=== PATIENT | female | born 1955 | race Caucasian/White ===

== ENCOUNTER 2017-10-21 13:07 | Outpatient (CLI) | payer OTHER | END 2017-10-21 13:08 | disposition home or self-care (01) | LOC: LABBT 13:07 | PROVIDERS: ATTEND Internal Medicine Cardiovascular Disease | DX: Z01.818 Encounter for other preprocedural examination (principal); I47.1 Supraventricular tachycardia ==

== ENCOUNTER 2017-10-23 10:33 | Outpatient (CLI) | payer OTHER ==
[2017-10-23 11:31] LABS: Hemoglobin 13.9 g/dL (12.0-16.0); Mean Corpuscular HGB CONC 34.5 g/dL (32.0-36.0); Mean Corpuscular Hemoglobin 30.9 pg (27.0-31.0); Mean Corpuscular Volume 89.7 fL (78.0-98.0); Mean Platelet Volume 9.5 fL (7.4-10.4); Platelet Count 194 thou/uL (130-400); RBC Distribution Width 12.1 % (11.5-14.5); Red Blood Cell (RBC) Count 4.48 mill/uL (4.20-5.40); White Blood Cell (WBC) Count 5.1 thou/uL (4.8-10.8)
[2017-10-23 11:32] LABS: INR-International Normal Ratio 0.8; PTT 26.9 SEC (22.9-36.1); Prothrombin Time 11.5 SEC (12.0-14.7)
[2017-10-23 11:52] LABS: Anion Gap 12 mmol/L (10-20); BUN (Urea Nitrogen) 9 mg/dL (9.8-20.1); Calc. Creatinine Clearance 0 mL/min (70-130); Calcium 9.2 mg/dL (7.8-10.44); Carbon Dioxide 21 mmol/L (22-29); Chloride 102 mmol/L (98-107); Estimated GFR-MDRD 90; Glucose 96 mg/dL (70-105); Potassium 4.1 mmol/L (3.5-5.1); Sodium 131 mmol/L (136-145)
== END 2017-10-23 10:34 | disposition home or self-care (01) ==
LOC: LABBT 10:33
PROVIDERS: ATTEND Internal Medicine Cardiovascular Disease
DX: Z01.818 Encounter for other preprocedural examination (principal); Z51.81 Encounter for therapeutic drug level monitoring; I47.1 Supraventricular tachycardia; Z79.01 Long term (current) use of anticoagulants
CPT/HCPCS: 80048; 85027; 85610; 85730

== ENCOUNTER → 2017-10-27 | Day surgery (SDC) | payer OTHER ==
[2017-10-21 13:58] VITALS: BMI 37.3
[~2017-10-27] MED LIST: Fentanyl 100 MCG/2 ML VIAL ONE; Heparin 10,000 UNITS/1 ML VIAL ONE; Isoproterenol 0.2 MG/1 ML AMP ONE; Lidocaine 1% (PF) 30 ML VIAL ONE; Lidocaine 1% PF 5 ML VIAL ONE; Midazolam HCl 2 mg/2 ml Vial ONE; PROPOFOL 20 ML ONE; PROPOFOL 200 MG/20 ML VIAL ONE; Propofol 1,000 MG/100 ML VIAL IV ONE; Propofol 500 MG/50 ML VIAL ONE
--- NOTE | 2017-10-28 09:01 | OP ---
DATE OF SERVICE: 10/27/2017 ELECTROPHYSIOLOGY STUDY and RADIOFREQUENCY ABLATION REPORT REFERRING PHYSICIAN: Laura Castano M.D. REASON FOR PROCEDURE: Mrs. King is a 62-year-old woman with history of [place] terminable supraventricular tachyarrhythmias. She is here for EP study and radiofrequency ablation. PROCEDURE IN DETAIL: The patient received deep sedation by Anesthesia specialist. After adequate sedation achieved, the left and right femoral venous area was prepped and anesthetized using subcutaneous lidocaine. Under ultrasound guidance, the left femoral veins were cannulated x2 with a 6 and 8 Polish short sheaths and on the right, there was an 8 Polish short sheaths were introduced. Through these on the left side, an octapolar catheter was advanced to the right ventricle, His bundle and right atrial area and a decapolar catheter via the 8 Polish sheaths to the CS area was advanced. Mapping, pacing and recording was performed in each location with the following findings baseline cycle length milliseconds with sinus rhythm, OK 164, QRS 64, QT 337. The AV Wenckebach cycle length was 290 milliseconds, retrograde Wenckebach cycle length was 270 milliseconds, AV node ERP 600/240 milliseconds. There, a dual AV huyen physiology was present. An echo beats were seen with atrial my testing. VA conduction was concentric, no evidence of accessory pathway was demonstrated with parahisian pacing. The HV was measured to be 45 milliseconds. No change of infra-his conduction with ablation was seen. Following that, on isuprel we were able to induce the ablation was performed using a single 90-second burn at 30 wells with a junctional response was seen throughout. Following that isuprel was administered and with burst atrial pacing, we were able to induce a 2:1 and 1:1 atrial arrhythmias. They weree too short to perform and did not sustain too short in duration to perform extensive maneuvers, but the initiation seems to have been consistent with atrial flutter initially with cycle length of about 210 to 230 milliseconds. The activation sequence was typical in the CS leads for right atrial flutter. Following that, also a 1:1 tachycardia were also seen. Some of them do also are more consistent with AVNRT due to the longer AH at the last pacing spike. At this point, a decision was made to perform a slow pathway modification as well as cavotricuspid isthmus ablation both. With the help of a [employer] ST catheter radiofrequency ablation was performed at a slow pathway at 30 wells. A total of one 90-second joiner were delivered with changing the Wenckebach cycle length to 310 milliseconds. Following that with 500 milliseconds pacing at the CS 910 pole, cavotricuspid isthmus ablation was performed at 40 wells, prolongation of the trans-isthmus time was achieved to 120 milliseconds with longest 120-130 milliseconds. The longest trans-isthmus time demonstrated adjacent to the ablation line suggestive of a unilateral conduction block. Following that, Isuprel reinduction of the AVRT was documented and repeat of slow pathway ablation was performed increasing the AV Wenckebach cycle to 320 milliseconds. The CTI line remained blocked on Isuprel. No reinducibility of the tachyarrhythmias were seen. CONCLUSION: 1. 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 2. Successful ablation of slow pathway eliminating inducibility of AVNRT. 3. Cavotricuspid isthmus ablation performed eliminating inducibility of atrial flutter. 4. Normal AV huyen and His-Purkinje function before and after the ablation. 4. No evidence of accessory pathway. 5. No change in cardiac silhouette and post-ablation and the patient remained stable throughout the procedure. PLAN: Wean off AV huyen blocking agents and routine outpatient followup. MTDD
== END ==
LOC: CCL 07:02
PROVIDERS: ATTEND Internal Medicine Cardiovascular Disease
PROC: 4A023FZ Measurement of Cardiac Rhythm, Percutaneous Approach (ICD-10-PCS; principal; 2017-10-27)
PROC: 02583ZZ Destruction of Conduction Mechanism, Percutaneous Approach (ICD-10-PCS; principal; 2017-10-27)
DX: I47.1 Supraventricular tachycardia (principal); I10 Essential (primary) hypertension; Z79.899 Other long term (current) drug therapy; Z88.2 Allergy status to sulfonamides
CPT/HCPCS: 76942; 93613; 93621; 93623; 93653; 93655; C1730; C1769; J1644; J2001; J2250; J2704; J3010

== ENCOUNTER 2018-04-09 13:00 | Inpatient (IN) | payer OTHER ==
[2018-04-17 13:29] VITALS: BMI 36.1
[2018-04-20] MEDS ORDERED: Tranexamic Acid 1,000 MG/10 ML VIAL ONE ×2 (10:42→15:54)
[2018-04-20] MEDS ORDERED: Sodium Chloride 0.9% 100 ML ONE (10:42)
[2018-04-20] MEDS ORDERED: CEFAZOLIN 2 GM/50 ML BAG ONE (10:42)
[2018-04-20] MEDS ORDERED: Midazolam HCl 2 mg/2 ml Vial ONE (11:05)
[2018-04-20] MEDS ORDERED: Fentanyl 100 MCG/2 ML VIAL ONE ×5 (11:05→16:35)
[2018-04-20] MEDS ORDERED: Ropivacaine HCl/PF 250 ML in Premix Bag 1 BAG NERVE BLCK SCH (11:28)
[2018-04-20] MEDS ORDERED: HYDROcodone/Acetaminophen 10/325 mg Tablet PO PRN ×3 (11:28→13:28)
[2018-04-20] MEDS ORDERED: Ondansetron PF 4 MG/2 ML Vial IVP PRN ×2 (11:28→13:28)
[2018-04-20] MEDS ORDERED: traMADol HCl 50 MG TAB PO PRN ×2 (11:28)
[2018-04-20] MEDS ORDERED: Promethazine HCl 25 MG/ML VIAL IM PRN ×3 (11:28→14:46)
[2018-04-20] MEDS ORDERED: Zolpidem Tartrate 5 MG TAB PO PRN ×2 (11:28→13:28)
[2018-04-20] MEDS ORDERED: Fentanyl 100 MCG/2 ML VIAL IV PRN (11:29)
[2018-04-20] MEDS ORDERED: Scopolamine 1.5 mg/72 hour Patch ONE (11:59)
[2018-04-20] MEDS ORDERED: Bupivacaine/Epinephrine 0.25% 30 ML VIAL ONE ×2 (13:09→14:07)
[2018-04-20] MEDS ORDERED: Neomycin-Polymyxin 1 ML AMP ONE (13:10)
[2018-04-20] MEDS ORDERED: diphenhydrAMINE 25 MG CAP PO PRN (13:28)
[2018-04-20] MEDS ORDERED: Acetaminophen 325 MG TAB PO PRN (13:28)
[2018-04-20] MEDS ORDERED: Morphine 4 MG/ML VIAL SLOW IVP PRN (13:28)
[2018-04-20] MEDS ORDERED: CEFAZOLIN/Water 2 GM/20 ML SYRINGE SLOW IVP SCH (13:30)
[2018-04-20] MEDS ORDERED: Tranexamic Acid 1,000 MG in Sodium Chloride 0.9% 100 ML IVPB SCH (13:45)
[2018-04-20] MEDS ORDERED: Ketorolac Tromethamine 30 MG/ML VIAL IVP SCH (14:00)
[2018-04-20] MEDS ORDERED: Promethazine HCl 25 MG/ML VIAL SLOW IVP PRN (14:46)
[2018-04-20] MEDS ORDERED: Ondansetron HCl/PF 4 MG/2 ML Vial IVP PRN (14:46)
[2018-04-20] MEDS ORDERED: HYDROmorphone 2 MG/ML VIAL SLOW IVP PRN (14:46)
[2018-04-20] MEDS ORDERED: Promethazine HCl 25 MG/ML VIAL ONE (15:26)
[2018-04-20] MEDS ORDERED: Ropivacaine 0.5% HCl/PF (150 MG/30 ML VIAL) ONE (15:27)
[2018-04-20] MEDS ORDERED: Bupivacaine 0.25% HCL 30 ML VIAL ONE (15:27)
[2018-04-20] MEDS ORDERED: Glycopyrrolate 0.2 MG/ML 5 ML SYRINGE ONE (16:29)
[2018-04-20] MEDS ORDERED: PROPOFOL 200 MG/20 ML VIAL ONE (16:29)
[2018-04-20] MEDS ORDERED: Ondansetron PF 4 MG/2 ML Vial ONE (16:29)
[2018-04-20] MEDS ORDERED: PHENYLEPHRINE-NS 100 MCG/ML 10 ML SYRINGE ONE ×2 (16:29)
[2018-04-20] MEDS ORDERED: Lidocaine 1% PF 5 ML VIAL ONE (16:29)
[2018-04-20] MEDS ORDERED: Dexamethasone 20 MG/5 ML VIAL ONE (16:29)
[2018-04-20] MEDS ORDERED: Rocuronium Bromide 10 MG/ML (10ML VIAL) ONE (16:29)
[2018-04-20] MEDS ORDERED: Ketorolac Tromethamine 30 MG/ML VIAL ONE (16:29)
[2018-04-20] MEDS: Ketorolac Tromethamine 30 MG/ML VIAL IVP SCH ×2 (17:27→19:38)
[2018-04-20] MEDS: Sodium Chloride 0.9% 1,000 ML IV SCH ×2 (17:27→23:45)
[2018-04-20] MEDS ORDERED: CEFAZOLIN 2 GM/50 ML-DEXTROSE 2 GM in Premix Bag 1 BAG IVPB SCH (18:00)
[2018-04-20] MEDS: Lisinopril 20 MG TAB PO SCH (21:11)
[2018-04-20] MEDS: Atorvastatin Calcium 20 MG TAB PO SCH (21:15)
[2018-04-20] MEDS: Aspirin 81 mg Enteric Coated Tablet PO SCH (21:15)
[2018-04-20] MEDS: Oxybutynin 5 MG TAB PO SCH (21:15)
[2018-04-20] MEDS: CEFAZOLIN 2 GM/50 ML-DEXTROSE 2 GM in Premix Bag 1 BAG IVPB SCH (21:17)
[2018-04-21] MEDS: Ketorolac Tromethamine 30 MG/ML VIAL IVP SCH ×5 (01:00→23:07)
[2018-04-21] MEDS: CEFAZOLIN 2 GM/50 ML-DEXTROSE 2 GM in Premix Bag 1 BAG IVPB SCH (05:32)
[2018-04-21 06:42] LABS: Hemoglobin 11.9 g/dL (12.0-16.0); Mean Corpuscular HGB CONC 33.9 g/dL (32.0-36.0); Mean Corpuscular Hemoglobin 30.3 pg (27.0-31.0); Mean Corpuscular Volume 89.3 fL (78.0-98.0); Mean Platelet Volume 9.8 fL (7.4-10.4); Platelet Count 192 thou/uL (130-400); RBC Distribution Width 11.3 % (11.5-14.5); Red Blood Cell (RBC) Count 3.92 mill/uL (4.20-5.40); White Blood Cell (WBC) Count 12.5 thou/uL (4.8-10.8)
[2018-04-21] MEDS: Ferrous Gluconate 324 MG TAB PO SCH ×2 (08:24→17:13)
[2018-04-21] MEDS: Senokot S 8.6-50 MG TAB PO SCH ×2 (08:25→20:23)
[2018-04-21] MEDS: Estradiol 1 MG TAB PO SCH (08:25)
[2018-04-21] MEDS: Oxybutynin 5 MG TAB PO SCH ×2 (08:25→20:26)
[2018-04-21] MEDS: Multivitamin W/ Minerals 1 TAB PO SCH (08:26)
[2018-04-21] MEDS: Lisinopril 20 MG TAB PO SCH ×2 (08:26→20:23)
[2018-04-21] MEDS ORDERED: Aspirin 81 mg Enteric Coated Tablet PO SCH ×2 (09:00)
[2018-04-21] MEDS: HYDROcodone/Acetaminophen 10/325 mg Tablet PO PRN ×2 (10:16→14:48)
[2018-04-21] MEDS: Sodium Chloride 0.9% 1,000 ML IV SCH ×2 (12:50→20:03)
[2018-04-21] MEDS: Aspirin 81 mg Enteric Coated Tablet PO SCH ×2 (14:41→20:23)
[2018-04-21] MEDS: Atorvastatin Calcium 20 MG TAB PO SCH (20:23)
[2018-04-22] MEDS: Sodium Chloride 0.9% 1,000 ML IV SCH (04:52)
[2018-04-22] MEDS: Ketorolac Tromethamine 30 MG/ML VIAL IVP SCH (05:40)
[2018-04-22 07:17] LABS: Hemoglobin 11.3 g/dL (12.0-16.0); Mean Corpuscular HGB CONC 33.6 g/dL (32.0-36.0); Mean Corpuscular Hemoglobin 30.1 pg (27.0-31.0); Mean Corpuscular Volume 89.8 fL (78.0-98.0); Mean Platelet Volume 9.5 fL (7.4-10.4); Platelet Count 171 thou/uL (130-400); RBC Distribution Width 11.4 % (11.5-14.5); Red Blood Cell (RBC) Count 3.75 mill/uL (4.20-5.40); White Blood Cell (WBC) Count 6.8 thou/uL (4.8-10.8)
[2018-04-22] MEDS: Multivitamin W/ Minerals 1 TAB PO SCH (08:34)
[2018-04-22] MEDS: Oxybutynin 5 MG TAB PO SCH (08:34)
[2018-04-22] MEDS: Estradiol 1 MG TAB PO SCH (08:34)
[2018-04-22] MEDS: Ferrous Gluconate 324 MG TAB PO SCH (08:34)
[2018-04-22] MEDS: Senokot S 8.6-50 MG TAB PO SCH (08:35)
[2018-04-22 08:40] VITALS: TEMP 98.1
[2018-04-22] MEDS: HYDROcodone/Acetaminophen 10/325 mg Tablet PO PRN (08:48)
[2018-04-22] MEDS ORDERED: Fish Oil 1,000 MG CAP PO SCH (09:00)
[2018-04-22] MEDS: Aspirin 81 mg Enteric Coated Tablet PO SCH (09:05)
[2018-04-22] MEDS: Lisinopril 20 MG TAB PO SCH (09:05)
[2018-04-22 09:06] VITALS: BP 137/74
--- NOTE | 2018-04-22 14:52 | OP ---
DATE OF PROCEDURE: 04/20/2018 PREOPERATIVE DIAGNOSIS: Osteoarthrosis, left knee. POSTOPERATIVE DIAGNOSIS: Osteoarthrosis, left knee. PROCEDURE PERFORMED: Left total knee arthroplasty. ANESTHESIA: General. MOLD CUTTING MACHINE OPERATOR: LIVIA Umanzor. COMPLICATIONS: None. CONDITION: Good. ESTIMATED BLOOD LOSS: Minimal. DRAINS: None. TOURNIQUET: Per Anesthesia. DESCRIPTION OF PROCEDURE: After consent was obtained, the patient was taken to the operating room and placed in supine position. After adequate general anesthesia had been achieved, the patient's left knee was examined. She had moderate varus deformity, flexion up to 130 degrees, full extension. Left knee was then positioned, prepped and draped in usual sterile fashion. Tourniquet was placed in the left upper thigh. Leg was elevated and exsanguinated. Tourniquet was inflated prior to incision. The standard midline vertical incision was made. It was taken down to subcutaneous tissues, exposing extensor mechanism. Medial parapatellar arthrotomy was performed. The patella was subluxed laterally. The patient had grade 4 medial compartment disease with significant patellofemoral arthrosis. Using intramedullary guide, distal 5-degree valgus resection on the femur. Using AP and epicondylar axis, proper rotation, position, a size 4 cutting block was placed. Anterior, posterior, and chamfer cuts completed for the size 4 Evolution femur. Tibia was then subluxed anteriorly medial compartment. Menisci and cruciate ligaments were debrided, flexion and extension gaps were then checked for the 10 mm spacer. Good balancing was noted. The patellar was then measured approximately 7 to 8 mm resection performed, and a 29 mm patella was medialized. The trial components were then placed, 4 femur, 4 tibia, 29 patella with 10 mm bearing surfaces, put through range of motion. The patient had full flexion and extension, good patellofemoral alignment and tracking. The tibial baseplate was then marked, prepared with the berna. All surfaces were irrigated, copiously dried. Femur, tibia, and patella cemented. Excess cement removed. We again trialed with the 10 mm bearing surface, and this was chosen and snapped fit. After copious irrigation, hemostasis was obtained. The arthrotomy was closed with #2 Mersilene and #1 Vicryl, subcu with 0 and 2-0 Vicryl, and skin with rosana. A sterile bulky dressing was applied and the patient was taken to Recovery. PROGNOSIS: Good. We will begin rehab protocol. Baudilio Wagoner was involved in the procedure and it is essential due to his specialized knowledge in orthopedic implantation. He assisted in positioning, retraction, and instrumentation of this procedure, and also was involved in closure and transported the patient. Job ID: [id number]
== END 2018-04-22 12:03 | disposition home or self-care (01) | DRG 470 ==
LOC: SURG A 04-20 09:54 → SJJU 04-20 16:48
PROVIDERS: ADMIT Orthopaedic Surgery; ATTEND Orthopaedic Surgery
PROC: 0SRD0J9 Replacement of Left Knee Joint with Synthetic Substitute, Cemented, Open Approach (ICD-10-PCS; principal; 2018-04-20)
DX: M17.12 Unilateral primary osteoarthritis, left knee (principal); Z96.651 Presence of right artificial knee joint; Z88.2 Allergy status to sulfonamides
CPT/HCPCS: 36415; 85027; 96374; C1713; C1776; J1100; J1885; J2001; J2250; J2405; J2550; J2704; J2795; J3010; J7050; S0020

== ENCOUNTER 2018-04-17 07:55 | Outpatient (CLI) | payer OTHER ==
[2018-04-17 14:11] LABS: Mean Corpuscular HGB CONC 33.8 g/dL (32.0-36.0); Mean Corpuscular Hemoglobin 30.2 pg (27.0-31.0); Mean Corpuscular Volume 89.3 fL (78.0-98.0); Mean Platelet Volume 9.3 fL (7.4-10.4); Platelet Count 215 thou/uL (130-400); RBC Distribution Width 11.6 % (11.5-14.5); Red Blood Cell (RBC) Count 4.97 mill/uL (4.20-5.40); White Blood Cell (WBC) Count 5.7 thou/uL (4.8-10.8)
[2018-04-17 14:18] LABS: Prothrombin Time 12.9 SEC (12.0-14.7)
[2018-04-17 14:34] LABS: Anion Gap 15 mmol/L (10-20); BUN (Urea Nitrogen) 6 mg/dL (9.8-20.1); Calc. Creatinine Clearance 0 mL/min (70-130); Carbon Dioxide 23 mmol/L (23-31); Chloride 102 mmol/L (98-107); Estimated GFR-MDRD 79; Glucose 106 mg/dL (80-115); Potassium 4.5 mmol/L (3.5-5.1); Sodium 135 mmol/L (136-145)
--- NOTE | 2018-04-17 17:07 | EKG ---
Test Reason : Blood Pressure : / mmHG Vent. Rate : 062 BPM Atrial Rate : 062 BPM P-R Int : 166 ms QRS Dur : 070 ms QT Int : 376 ms P-R-T Axes : 066 015 038 degrees QTc Int : 381 ms Normal sinus rhythm Cannot rule out Anterior infarct , age undetermined Abnormal ECG When compared with ECG of 08-AUG-2015 12:04, Minimal criteria for Anterior infarct are now Present Confirmed by DR. Billy CRUZ ([id number]) on 04/17/2018 5:07:24 PM Referred By: KATHY Confirmed By:DR. Billy CRUZ
== END 2018-04-17 07:56 | disposition home or self-care (01) ==
LOC: LABBT 07:55
PROVIDERS: ATTEND Orthopaedic Surgery
DX: Z01.818 Encounter for other preprocedural examination (principal); M17.12 Unilateral primary osteoarthritis, left knee
CPT/HCPCS: 80048; 85027; 85610; 85730; 86850; 86900; 86901; 93005; 93010

== ENCOUNTER 2019-02-02 12:42 | Outpatient (CLI) | payer OTHER ==
--- NOTE | 2019-02-02 13:18 | ULT ---
US Renal Bilateral STANDARD History: Dysuria Comparison: None. Findings: Real-time grayscale and color evaluation of the kidneys and urinary bladder was performed. Right kidney measures 12.1 x 5.1 x 5 cm and the left kidney measures 11.2 x 6.1 x 5.9 cm. Urinary kareem dder is unremarkable. No renal mass, hydronephrosis, or abnormal calcifications. Impression: Normal renal ultrasound.
== END 2019-02-02 12:43 | disposition home or self-care (01) ==
LOC: BICULT 12:42
PROVIDERS: ATTEND Urology
DX: R30.0 Dysuria (principal); R35.0 Frequency of micturition
CPT/HCPCS: 76770

== ENCOUNTER 2019-12-08 16:22 | Observation (INO) | payer OTHER ==
[2019-12-08] MEDS ORDERED: Fentanyl 100 MCG/2 ML VIAL ONE ×3 (16:30→18:45)
--- NOTE | 2019-12-08 17:31 | RAD ---
Exam:One view left hip HISTORY: Hip replacement. COMPARISON: 09/28/2019 FINDINGS: Crosstable lateral left hip demonstrates subluxation at the joint space. The prosthetic fem oral head is subluxed with respect to the prosthetic acetabulum. IMPRESSION: Subluxation.
--- NOTE | 2019-12-08 19:22 | RAD ---
Exam:3 views left hip HISTORY: Dislocation COMPARISON: 12/08/2019 FINDINGS: Interval reduction. No fracture. IMPRESSION: Interval reduction. No fracture.
[2019-12-08] MEDS ORDERED: HYDROcodone/Acetaminophen 5/325 mg Tablet PO PRN (19:24)
[2019-12-08] MEDS ORDERED: Ondansetron ODT 4 MG TAB PO PRN (19:24)
[2019-12-08] MEDS ORDERED: PROPOFOL 20 ML ONE (19:30)
[2019-12-08] MEDS ORDERED: Fentanyl 100 MCG/2 ML VIAL SLOW IVP PRN (19:46)
[2019-12-08] MEDS: HYDROcodone/Acetaminophen 5/325 mg Tablet PO PRN (22:27)
[2019-12-08 22:39] VITALS: BMI 33.3
[2019-12-09] MEDS: HYDROcodone/Acetaminophen 5/325 mg Tablet PO PRN (06:10)
--- NOTE | 2019-12-09 07:50 | HP ---
CHIEF COMPLAINT: Left hip pain. HISTORY OF PRESENT ILLNESS: Lynn is a 64-year-old female who was brought to [facility] via EMS after she had a spontaneous dislocation. Apparently, replacement was done, believing September of this year by Dr. Ceja. Plain radiographs demonstrated posterior dislocation of a prosthetic hip. PAST MEDICAL HISTORY: Hypertension, occasional dysrhythmia, and left hip was in September. PAST SURGICAL HISTORY: Bilateral total hip arthroplasties. MEDICATIONS: 1. Estradiol. 2. Lisinopril. 3. Simvastatin. 4. Omeprazole. 5. Aspirin. ALLERGIES: SULFA DRUGS. SOCIAL HISTORY: She denies any ethanol, tobacco, or illicit drug abuse. She was . Retired. PHYSICAL EXAMINATION: GENERAL: Well-nourished, well-developed female, in no apparent distress, but a little uncomfortable. She is alert, responsive, appropriate, and conversant with examiner. No falls reported. EXTREMITIES: Left lower extremity demonstrates her to have shortening in external rotation relative to the right. She is neurovascularly intact in left lower extremity. Good distal pulses. Pain is reproducible with pulling. IMAGING STUDIES: Two-view of left hip demonstrates a posterior dislocation of prosthesis. IMPRESSION: Spontaneous left prosthetic hip dislocation. PLAN: 1. The risks, benefits, options, alternatives, and rationale for proceeding with closed reduction under mild sedation in the emergency room has been explained in great detail with the patient. She is ready to proceed. All questions were answered. No guarantee of outcome stated or implied. 2. Postreduction films were obtained, which demonstrates a reduced joint. The patient will be admitted, placed in a long-leg immobilizer, and consult Physical Therapy. We will discharge her to home. She will follow up with Dr. Moss. Job ID: [id number]
--- NOTE | 2019-12-09 08:12 | OP ---
DATE OF PROCEDURE: 12/08/2019 PREPROCEDURE DIAGNOSIS: Left hip prosthetic posterior dislocation. POSTPROCEDURE DIAGNOSIS: Left hip prosthetic posterior dislocation. PROCEDURE PERFORMED: Bedside closed reduction of left hip prosthetic dislocation under IV sedation. COMPUTER SYSTEMS ANALYST: Ayush Kaye PA-C ANESTHESIA: Per emergency room physician via propofol. PROCEDURE IN DETAIL: After informed consent was obtained, the patient was positioned appropriately in the supine position. She was given approximately 40 to 60 mg of propofol IV after receiving 150 mcg of fentanyl for pain control. The patient remained awake and alert throughout the procedure, but with mild sedation and comfort. Vitals also remained stable. Once adequate anesthesia was obtained, the left lower extremity was then positioned and flexed, abducted, in internal rotation position, and perpendicular reduction lengthening was applied to the hip and a relocation clunk was felt. The patient was then placed in the hip extension. Internal-external rotation was felt solid stable. Leg lengths were equal. Postreduction films were obtained demonstrating relocated hip. Procedure was terminated without any complication. The patient remained neurovascularly intact throughout both before, during, and after procedure. Pain was immediately controlled also postprocedure. The patient will be admitted to the hospital for observation, placed in long-leg immobilizer, weightbearing as tolerated, and discharged once she is stable to go home. Job ID: [id number]
[2019-12-09] MEDS ORDERED: Aspirin 81 mg Enteric Coated Tablet PO SCH (09:00)
[2019-12-09] MEDS ORDERED: Enoxaparin Sodium 30 MG/0.3 ML SYRINGE SC SCH (09:00)
[2019-12-09] MEDS ORDERED: Oxybutynin 5 MG TAB PO SCH (09:00)
[2019-12-09] MEDS ORDERED: Estradiol 1 MG TAB PO SCH (09:00)
[2019-12-09] MEDS ORDERED: Lisinopril 20 MG TAB PO SCH (09:00)
[2019-12-09 12:39] VITALS: BP 149/82; TEMP 97.9
[2019-12-09 13:26] LABS: SARS-CoV-2 MS2 Positive; SARS-CoV-2 N Gene Negative; SARS-CoV-2 S Gene Negative; SARS-CoV-2 by NAA Not Detected (NotDetected); SARS-CoV-2 orf1ab Negative
[2019-12-09] MEDS ORDERED: Fish Oil 1,000 MG CAP PO SCH (21:00)
[2019-12-09] MEDS ORDERED: Atorvastatin Calcium 20 MG TAB PO SCH (21:00)
== END 2019-12-09 12:10 | disposition home or self-care (01) ==
LOC: ERS 16:22 → SURG A 20:58
PROVIDERS: ADMIT Orthopaedic Surgery; ATTEND Orthopaedic Surgery
PROC: 0SWBXJZ Revision of Synthetic Substitute in Left Hip Joint, External Approach (ICD-10-PCS; principal; 2019-12-08)
DX: T84.021A Dislocation of internal left hip prosthesis, initial encounter (principal); I10 Essential (primary) hypertension; I49.9 Cardiac arrhythmia, unspecified; Z79.82 Long term (current) use of aspirin; Z79.899 Other long term (current) drug therapy; Z88.2 Allergy status to sulfonamides; Z20.828 Contact with and (suspected) exposure to other viral communicable diseases
CPT/HCPCS: 27250; 87635; 96372; 99152; G0378; J1650; J2704; J3010; Q0162; U0003

== ENCOUNTER 2020-12-06 05:54 | Day surgery (SDC) | payer OTHER ==
[2020-12-04 15:24] VITALS: BMI 36.1
[2020-12-06] MEDS ORDERED: EPINEPHrine 1 MG/ML AMP ONE (06:09)
[2020-12-06] MEDS ORDERED: Bupivacaine PF 0.5% 30 ML VIAL ONE (06:09)
[2020-12-06] MEDS ORDERED: Thrombin 5000 UNITS/5 ML VIAL ONE (06:09)
[2020-12-06] MEDS ORDERED: HYDROmorphone 0.5 MG/0.5 ML SYRINGE ONE (06:24)
[2020-12-06] MEDS ORDERED: Fentanyl 100 MCG/2 ML VIAL ONE ×4 (06:55→09:42)
[2020-12-06] MEDS ORDERED: Midazolam HCl 2 mg/2 ml Vial ONE (06:55)
[2020-12-06] MEDS ORDERED: Rocuronium Bromide 10 MG/ML (10ML VIAL) ONE (07:04)
[2020-12-06] MEDS ORDERED: Ketorolac Tromethamine 30 MG/ML VIAL ONE (07:04)
[2020-12-06] MEDS ORDERED: PROPOFOL 200 MG/20 ML VIAL ONE (07:04)
[2020-12-06] MEDS ORDERED: Glycopyrrolate 0.2 MG/ML 5 ML SYRINGE ONE (07:04)
[2020-12-06] MEDS ORDERED: ePHEDrine 50 MG/ML VIAL ONE (07:04)
[2020-12-06] MEDS ORDERED: Dexamethasone 20 MG/5 ML VIAL ONE (07:04)
[2020-12-06] MEDS ORDERED: Lidocaine 1% PF 5 ML VIAL ONE (07:04)
[2020-12-06] MEDS ORDERED: Ondansetron PF 4 MG/2 ML Vial ONE (07:04)
[2020-12-06] MEDS ORDERED: diphenhydrAMINE 50 MG/ML VIAL ONE (07:04)
[2020-12-06] MEDS ORDERED: PHENYLEPHRINE-NS 100 MCG/ML 10 ML SYRINGE ONE (07:04)
[2020-12-06] MEDS ORDERED: Ondansetron HCl/PF 4 MG/2 ML Vial IVP PRN (07:57)
[2020-12-06] MEDS ORDERED: Meperidine HCl/PF 25 MG/ML VIAL SLOW IVP PRN (07:57)
[2020-12-06] MEDS ORDERED: Promethazine HCl 25 MG/ML VIAL IM PRN (07:57)
[2020-12-06] MEDS ORDERED: HYDROmorphone 2 MG/ML VIAL SLOW IVP PRN (07:57)
[2020-12-06] MEDS ORDERED: Promethazine HCl 25 MG/ML VIAL IVPB PRN (07:57)
[2020-12-06] MEDS ORDERED: SUGAMMADEX SODIUM 200 MG/2 ML VIAL ONE (08:02)
[2020-12-06] MEDS ORDERED: Morphine 4 MG/ML VIAL ONE (08:22)
[2020-12-06] MEDS ORDERED: Morphine 2 MG/ML VIAL ONE ×3 (08:42→11:37)
[2020-12-06] MEDS ORDERED: hydrALAZINE 20 MG/ML VIAL ONE (12:06)
[2020-12-06] MEDS ORDERED: Promethazine HCl 25 MG/ML VIAL ONE (12:18)
[2020-12-06] MEDS ORDERED: Ondansetron ODT 4 MG TAB ONE (13:41)
== END 2020-12-06 14:20 | disposition home or self-care (01) ==
LOC: SDC 05:54
PROVIDERS: ATTEND Neurological Surgery
PROC: 01NB0ZZ Release Lumbar Nerve, Open Approach (ICD-10-PCS; principal; 2020-12-06)
DX: M71.38 Other bursal cyst, other site (principal); M47.26 Other spondylosis with radiculopathy, lumbar region; M48.062 Spinal stenosis, lumbar region with neurogenic claudication; M51.16 Intervertebral disc disorders with radiculopathy, lumbar region; E78.5 Hyperlipidemia, unspecified; G89.29 Other chronic pain; I10 Essential (primary) hypertension; Z79.82 Long term (current) use of aspirin; Z79.899 Other long term (current) drug therapy; Z88.2 Allergy status to sulfonamides
CPT/HCPCS: 76000; J0171; J0360; J0690; J1100; J1170; J1200; J1885; J2250; J2270; J2405; J2550; J2704; J3010; J3490; Q0162; S0020

== ENCOUNTER 2021-04-23 10:03 | Outpatient (CLI) | payer BC | END 2021-04-23 10:04 | disposition home or self-care (01) | LOC: BICRAD 10:03 | PROVIDERS: ATTEND Family Medicine | DX: R05.3 Chronic cough (principal) | CPT/HCPCS: 71046 ==

== ENCOUNTER 2022-02-06 08:25 | Outpatient (CLI) | payer MEDICARE | END 2022-02-06 08:26 | disposition home or self-care (01) | LOC: RAD 08:25 | PROVIDERS: ATTEND Internal Medicine | DX: K21.00 Gastro-esophageal reflux disease with esophagitis, without bleeding (principal); J45.909 Unspecified asthma, uncomplicated; R05.3 Chronic cough; K22.89 Other specified disease of esophagus | CPT/HCPCS: 74220 ==

== ENCOUNTER 2024-02-09 13:25 | Outpatient (CLI) | payer MEDICARE | END 2024-02-09 13:26 | disposition home or self-care (01) | LOC: BICULT 13:25 | PROVIDERS: ATTEND Family Medicine | DX: N63.20 Unspecified lump in the left breast, unspecified quadrant (principal); N64.9 Disorder of breast, unspecified ==

== ENCOUNTER 2024-12-08 08:43 | Outpatient (CLI) | payer MEDICARE ==
[2024-12-08 09:45] LABS: Estimated GFR - POC 62.0
== END 2024-12-08 08:44 | disposition home or self-care (01) ==
LOC: SCSMRI 08:43
PROVIDERS: ATTEND Psychiatry & Neurology Neurology
DX: B02.29 Other postherpetic nervous system involvement (principal); M47.814 Spondylosis without myelopathy or radiculopathy, thoracic region
CPT/HCPCS: 36415; 72157; 82565